=== PATIENT | female | born 2000 | race Two or more races ===

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

== ENCOUNTER 2020-01-11 05:18 | Emergency (ER) | payer OTHER ==
[~2020-01-11] VITALS: Ht 165.1 cm; Wt 104.3 kg
[~2020-01-11 05:18] MED LIST changes: +NITROFURANTOIN100 M2 ORAL; +NKM
--- NOTE | 2020-01-11 05:30 | NUR ---
ED Nurse Note: PT WALKED IN TO ED C/O ABD PAIN SINCE AM. PT STATES NVD, DENIES FEVER, ALCOHOL OR DRUG USE. VSS, NAD. ERMD AT BEDSIDE. WILL CONTINUE TO MONITOR PATIENT.
--- NOTE | 2020-01-11 06:00 | NUR ---
ED Nurse Note: URINE COLLECTED AND SENT TO LAB.
--- NOTE | 2020-01-11 06:00 | NUR ---
ED Nurse Note: BLOOD DRAWN AND SENT TO LAB
[2020-01-11 06:01] LABS: APPEARANCE,URINE CLEAR; BILIRUBIN, URINE NEGATIVE (NEGATIVE); COLOR,URINE PALE YELLOW; GLUCOSE, URINE (UA) NEGATIVE (NEGATIVE); KETONES,URINE NEGATIVE (NEGATIVE); LEUKOCYTE ESTERASE ,URINE 1+ (NEGATIVE); NITRITE,URINE NEGATIVE (NEGATIVE); PH,URINE 6 (4.5-8.0); PROTEIN,URINE NEGATIVE (NEGATIVE); UROBILINOGEN,URINE NORMAL MG/DL (0.0-1.0)
[2020-01-11 06:02] LABS: BASOPHILS % (AUTO) 1.1 % (0.0-2.0); HEMATOCRIT 37.4 % (37.0-47.0); HEMOGLOBIN 12.6 G/DL (12.0-16.0); LYMPHOCYTES % (AUTO) 23.2 % (20.0-45.0); MEAN CORPUSCULAR VOLUME 86 FL (80-99); MONOCYTES % (AUTO) 5.1 % (1.0-10.0); NEUTROPHILS % (AUTO) 67.6 % (45.0-75.0); PLATELET COUNT 273 K/UL (150-450); RED BLOOD COUNT 4.36 M/UL (4.20-5.40); RED CELL DISTRIBUTION WIDTH 12.9 % (11.6-14.8); WHITE BLOOD COUNT 7.7 K/UL (4.8-10.8)
[2020-01-11 06:14] VITALS: BP 111/61
[2020-01-11 06:14] LABS: ANION GAP 12 mmol/L (5-15); BLOOD UREA NITROGEN 21 mg/dL (7-18); CALCIUM 9.2 MG/DL (8.5-10.1); CARBON DIOXIDE 25 MMOL/L (21-32); CHLORIDE 105 MMOL/L (98-107); CREATININE 0.8 MG/DL (0.55-1.30); POTASSIUM 3.3 MMOL/L (3.5-5.1); SODIUM 142 MMOL/L (136-145)
--- NOTE | 2020-01-11 06:14 | Emergency Room Report ---
History of Present Illness General Chief Complaint: Abdominal Pain Source: Patient (Mina Mcclendon MD) Present Illness HPI Disclaimer: Please note that this report is being documented using DRAGON technology. This can lead to erroneous entry secondary to incorrect interpretation by the dictating instrument. HPI: 19-year-old female presents for evaluation of abdominal pain vomiting and diarrhea. Symptoms began this morning approximately 3 AM. She was awakened from sleep with these symptoms. She has had 2 episodes of nonbloody nonbilious Alysis and loose stool all morning. She went to sleep at her usual state of health last night. Denies eating any new restaurants, trying new foods. Denies sick contacts. Denies fever, chills, URI symptoms, cough, dysuria, hematuria, chest pain or palpitations. She has not had an menstrual period for some time as she gave in early October and is currently breast-feeding. Denies any vaginal discharge or vaginal bleeding. Took Motrin prior to arrival but could not hold it down and vomited almost immediately. Denies history of abdominal surgery. Denies history of previous abdominal pain like this. No exacerbating or relieving factors. Currently a 9/10. Located in the epigastrium and does not radiate. PMH: Denies PSH: Denies Allergies: Denies Social Hx: Denies (Mina Mcclendon MD) Allergies: Coded Allergies: No Known Allergies (Verified Allergy, Unknown, 03/03/10) Patient History Now: No : 2 Para: 2 (Mina Mcclendon MD) Nursing Documentation-PMH Past Medical History: No Stated History (Mina Mcclendon MD) Review of Systems All Other Systems: negative except mentioned in HPI (Mina Mcclendon MD) Physical Exam Vital Signs Date Time Temp Pulse Resp B/P (MAP) Pulse Ox O2 Delivery O2 Flow Rate FiO2 01/11/20 05:24 97.5 100 16 117/80 (92) 98 Room Air General: Awake and alert, no acute distress HEENT: NC/AT. EOMI. Cardiovascular: RRR. S1 and S2 normal. No murmur appreciated Resp: Normal work of breathing. No cough, wheezing or crackles appreciated Abdomen: Abdomen is soft, nondistended, obese. Tender palpation in the epigastrium, left upper quadrant and right upper quadrant. Negative Brennan's. No other significant tenderness in the lower quadrants or suprapubic region. Skin: Intact. No abrasions, laceration or rash over the exposed skin MSK: Normal tone and bulk. Moving all extremities. No obvious deformity. Neuro: Awake and alert. Mentating appropriately. (Mina Mcclendon MD) Medical Decision Making Diagnostic Impression: Primary Impression: Gastroenteritis ER Course This a 19-year-old female presenting for evaluation of abdominal pain vomiting diarrhea of sudden onset this morning approximately 3 hours ago. Differential includes but is not limited to gastritis, gastroenteritis, viral syndrome, cholecystitis, hepatitis, pancreatitis, bowel obstruction, gastritis, appendicitis, nephrolithiasis, colitis to name a few. She arrives afebrile though appears uncomfortable and is tender mostly in the upper quadrants. Given her recent may be more susceptible to hepatobiliary disease. Will check labs to evaluate for renal and hepatic function and sent for a CT scan of the abdomen. If needed can call and ultrasound to evaluate hepatobiliary network. (Mina Mcclendon MD) ER Course Hospital Course 19 yo F presents to ED c/o abd pain Patient initially seen and evaluated by Dr Mcclendon. Please see his note for full history and physical Clinical course Labs - no leukocytosis, electrolytes ok, LFTs normal CT scan shows no acute pathology Upon reassessment, patient states pain has improved. I discussed findings with patient. Likely gastroenteritis. Course is viral and self-limited. Will discharge home with medications. Safe for discharge for close outpatient follow -up. States she has a PMD I feel this is a highly complex case requiring extensive working including EKG/ Rhythm strip, Xray/CT/US, Blood/urine lab work, repeat exams while in ED, and administration of strong opiates/narcotics for pain control, admission to hospital or close patient follow up. Diagnosis - gastroenteritis Stable and discharged to home with Rx Pepcid, Bentyl, Zofran. Followup with PMD. Return to ED if symptoms recur or worsen Labs Test 01/11/20 05:50 White Blood Count 7.7 K/UL (4.8-10.8) Red Blood Count 4.36 M/UL (4.20-5.40) Hemoglobin 12.6 G/DL (12.0-16.0) Hematocrit 37.4 % (37.0-47.0) Mean Corpuscular Volume 86 FL (80-99) Mean Corpuscular Hemoglobin 28.9 PG (27.0-31.0) Mean Corpuscular Hemoglobin Concent 33.7 G/DL (32.0-36.0) Red Cell Distribution Width 12.9 % (11.6-14.8) Platelet Count 273 K/UL (150-450) Mean Platelet Volume 7.3 FL (6.5-10.1) Neutrophils (%) (Auto) 67.6 % (45.0-75.0) Lymphocytes (%) (Auto) 23.2 % (20.0-45.0) Monocytes (%) (Auto) 5.1 % (1.0-10.0) Eosinophils (%) (Auto) 3.0 % (0.0-3.0) Basophils (%) (Auto) 1.1 % (0.0-2.0) Urine Color Pale yellow Urine Appearance Clear Urine pH 6 (4.5-8.0) Urine Specific [place] 1.020 (1.005-1.035) Urine Protein Negative (NEGATIVE) Urine Glucose (UA) Negative (NEGATIVE) Urine Ketones Negative (NEGATIVE) Urine Blood Negative (NEGATIVE) Urine Nitrite Negative (NEGATIVE) Urine Bilirubin Negative (NEGATIVE) Urine Urobilinogen Normal MG/DL (0.0-1.0) Urine Leukocyte Esterase 1+ (NEGATIVE) Urine RBC 0-2 /HPF (0 - 2) Urine WBC 2-4 /HPF (0 - 2) Urine Squamous Epithelial Cells Few /LPF (NONE/OCC) Urine Bacteria Few /HPF (NONE) Urine HCG, Qualitative Negative (NEGATIVE) Sodium Level 142 MMOL/L (136-145) Potassium Level 3.3 MMOL/L (3.5-5.1) Chloride Level 105 MMOL/L (98-107) Carbon Dioxide Level 25 MMOL/L (21-32) Anion Gap 12 mmol/L (5-15) Blood Urea Nitrogen 21 mg/dL (7-18) Creatinine 0.8 MG/DL (0.55-1.30) Estimat Glomerular Filtration Rate > 60 mL/min (>60) Glucose Level 105 MG/DL (74-106) Calcium Level 9.2 MG/DL (8.5-10.1) Total Bilirubin 0.3 MG/DL (0.2-1.0) Aspartate Amino Transf (AST/SGOT) 24 U/L (15-37) Alanine Aminotransferase (ALT/SGPT) 45 U/L (12-78) Alkaline Phosphatase 104 U/L (46-116) Total Protein 7.9 G/DL (6.4-8.2) Albumin 4.0 G/DL (3.4-5.0) Globulin 3.9 g/dL Albumin/Globulin Ratio 1.0 (1.0-2.7) Lipase 116 U/L (73-393) (Eugene Watts MD) CT/MRI/US Diagnostic Results CT/MRI/US Diagnostic Results : Imaging Test Ordered: CT A/P Impression COMPARISON: No relevant prior studies available. FINDINGS: Lung bases: Unremarkable. No mass. No consolidation. ABDOMEN: Liver: Unremarkable. No mass. Gallbladder and bile ducts: The gallbladder is moderately distended without stones or gallbladder wall thickening. No ductal dilation. Pancreas: Unremarkable. No mass. No ductal dilation. Spleen: Unremarkable. No splenomegaly. Adrenals: Unremarkable. No mass. Kidneys and ureters: Unremarkable. No solid mass. No hydronephrosis. Stomach and bowel: Unremarkable. No obstruction. No mucosal thickening. PELVIS: Appendix: No findings to suggest acute appendicitis. Bladder: Unremarkable. No mass. Reproductive: Unremarkable as visualized. ABDOMEN and PELVIS: Intraperitoneal space: There is trace free pelvic fluid, likely physiologic. No free air. Bones/joints: No acute fracture. No dislocation. Soft tissues: Unremarkable. Vasculature: Unremarkable. No abdominal aortic aneurysm. Lymph nodes: Unremarkable. No enlarged lymph nodes. IMPRESSION: Gallbladder distention without evidence of stone or gallbladder wall thickening. If there is concern for acute cholecystitis, gallbladder ultrasound may be useful for further evaluation. Otherwise unremarkable CT of the abdomen pelvis. (Eugene Watts MD) Last Vital Signs Date Time Temp Pulse Resp B/P (MAP) Pulse Ox O2 Delivery O2 Flow Rate FiO2 01/11/20 05:24 97.5 100 16 117/80 (92) 98 Room Air (Mina Mcclendon MD) Status: improved (Eugene Watts MD) Disposition: HOME, SELF-CARE Condition: Stable Scripts Dicyclomine Hcl* (DICYCLOMINE HCL*) 10 Mg Capsule 10 MG ORAL QID, #20 CAP Prov: Eugene Watts MD 01/11/20 Ondansetron Odt* (ZOFRAN ODT*) 4 Mg Tab.rapdis 4 MG BC EVERY 6 HOURS PRN for Nausea & Vomiting, #10 TAB 0 Refills Prov: Eguene Watts MD 01/11/20 Famotidine* (Pepcid 20mg tablet*) 20 Mg Tablet 20 MG ORAL DAILY, #30 TAB 0 Refills Prov: Eugene Watts MD 01/11/20 Referrals: [facility] (PCP) Mina Mcclendon MD Jan 11, 2020 06:14 Eugene Watts MD Jan 11, 2020 08:32
[2020-01-11] MEDS ORDERED: Omnipaque-300 100ml vial INJ PRN (06:15)
[2020-01-11 06:21] LABS: ALANINE AMINOTRANSFERASE 45 U/L (12-78); ALKALINE PHOSPHATASE 104 U/L (46-116); ASPARTATE AMINO TRANSFERASE 24 U/L (15-37); BILIRUBIN,TOTAL 0.3 MG/DL (0.2-1.0)
--- NOTE | 2020-01-11 06:50 | NUR ---
ED Nurse Note: PT WENT FOR CT VIA [facility]
--- NOTE | 2020-01-11 07:01 | NUR ---
ED Nurse Note: GAVE REPORT TO VALDEZ GIBSON
[2020-01-11] MEDS ORDERED: Lidocaine 2% Visc 15ml soln ORAL ONE (07:45)
[2020-01-11] MEDS ORDERED: Dicyclomine HCl 10mg/5ml oral soln ORAL ONE (07:45)
[2020-01-11] MEDS ORDERED: Mylanta II UD 30ml ORAL ONE (07:45)
[2020-01-11 08:00] VITALS: BP 122/70
--- NOTE | 2020-01-11 08:02 | Diagnostic Imaging Report ---
EXAM: CT Abdomen and Pelvis With Intravenous Contrast CLINICAL HISTORY: ABD PAIN TECHNIQUE: Axial computed tomography images of the abdomen and pelvis with intravenous contrast. CTDI is 13 mGy and DLP is 755 mGy-cm. One or more of the following dose reduction techniques were used: automated exposure control, adjustment of the mA and/or kV according to patient size, use of iterative reconstruction technique. COMPARISON: No relevant prior studies available. FINDINGS: Lung bases: Unremarkable. No mass. No consolidation. ABDOMEN: Liver: Unremarkable. No mass. Gallbladder and bile ducts: The gallbladder is moderately distended without stones or gallbladder wall thickening. No ductal dilation. Pancreas: Unremarkable. No mass. No ductal dilation. Spleen: Unremarkable. No splenomegaly. Adrenals: Unremarkable. No mass. Kidneys and ureters: Unremarkable. No solid mass. No hydronephrosis. Stomach and bowel: Unremarkable. No obstruction. No mucosal thickening. PELVIS: Appendix: No findings to suggest acute appendicitis. Bladder: Unremarkable. No mass. Reproductive: Unremarkable as visualized. ABDOMEN and PELVIS: Intraperitoneal space: There is trace free pelvic fluid, likely physiologic. No free air. Bones/joints: No acute fracture. No dislocation. Soft tissues: Unremarkable. Vasculature: Unremarkable. No abdominal aortic aneurysm. Lymph nodes: Unremarkable. No enlarged lymph nodes. IMPRESSION: Gallbladder distention without evidence of stone or gallbladder wall thickening. If there is concern for acute cholecystitis, gallbladder ultrasound may be useful for further evaluation. Otherwise unremarkable CT of the abdomen pelvis.
[2020-01-11] MEDS ORDERED: FAMOTIDINE20 MG ORAL (08:24)
[2020-01-11] MEDS ORDERED: ONDANSETRON ODT4 MG BC (08:24)
[2020-01-11] MEDS ORDERED: DICYCLOMINE HCL10 MG ORAL (08:24)
[2020-01-11 08:45] VITALS: BP 110/60
--- NOTE | 2020-01-11 08:45 | NUR ---
ER DISCHARGE NOTE: Patient is cleared to be discharged per ERMD, pt is aox4, on room air, with stable vital signs. pt was given dc and prescription instructions, pt was able to verbalize understanding, pt id band and iv site removed without complications. pt is able to ambulate with steady gait. pt took all belongings.
== END 2020-01-11 08:45 | disposition home or self-care (01) ==
LOC: EMR 05:45
DX: K52.9 Noninfective gastroenteritis and colitis, unspecified (principal)
CPT/HCPCS: 36415; 74177; 80053; 81003; 81025; 83690; 85025; 96361; 96374; J2405; J7030; Q9967; S0028; Z7502; 99284